=== PATIENT | female | born 1955 | race Caucasian/White ===

== ENCOUNTER → 2018-07-14 | Outpatient (CLI) | payer OTHER ==
[~2018-07-14] MED LIST: CIPR250 PO; FENO145 PO; FLUC150A PO; HYDCHL25 PO; LEVSOD150 PO; PHENA200 PO; POTCHL20ER PO; Zofran Odt4 MG SL; [UNRECOGNIZED DRUG - OTHER] PO
[2018-07-16 14:09] LABS: HPV 16 Negative (Negative); HPV 18 Negative (Negative); HPV OTHER HR TYPES Negative (Negative)
== END | disposition home or self-care (01) ==
LOC: LAB 14:18 → LAB SHORT 14:18
PROVIDERS: Nurse Practitioner Women's Health
DX: Z12.72 Encounter for screening for malignant neoplasm of vagina (principal); Z91.89 Other specified personal risk factors, not elsewhere classified
CPT/HCPCS: 87624; G0123

== ENCOUNTER 2023-03-18 20:19 | Emergency (ER) | payer MEDICARE, OTHER ==
[~2023-03-18] VITALS: Ht 162.6 cm; Wt 68.0 kg
[~2023-03-18 20:19] MED LIST changes: +ALBU90OI INH; +AMLO10 PO; +CLON.2 PO; +METO50 PO; +Prinivil10 MG PO; +VENL150ER PO
[2023-03-18 21:27] LABS: BASOPHILS ABSOLUTE AUTO 0.09 K/mm3 (0.00-0.23); BASOPHILS PERCENT AUTO 1 % (0-2); EOSINOPHILS ABSOLUTE AUTO 0.21 K/mm3 (0.00-0.68); EOSINOPHILS PERCENT AUTO 2 % (0-6); Hemoglobin 13.7 g/dL (11.5-16.0); IMMATURE GRAN ABSOLUTE AUTO 0.04 K/mm3 (0.00-0.10); IMMATURE GRAN PERCENT AUTO 0 % (0-1); LYMPHOCYTES ABSOLUTE AUTO 1.55 K/mm3 (0.84-5.20); LYMPHOCYTES PERCENT AUTO 13 % (21-46); MONOCYTES ABSOLUTE AUTO 0.65 K/mm3 (0.16-1.47); MONOCYTES PERCENT AUTO 6 % (4-13); Mean Corpuscular HGB 28.5 pg (26.0-34.0); Mean Corpuscular HGB Conc 32.6 g/dL (31.5-36.5); Mean Corpuscular Volume 88 fL (80-100); Mean Platelet Volume 9.3 fL (9.1-12.4); NEUTROPHILS ABSOLUTE AUTO 9.11 K/mm3 (1.96-9.15); NEUTROPHILS PERCENT AUTO 78 % (41-73); Platelet Count 372 K/mm3 (150-400); RDW Coefficient Variation 13.2 % (11.7-14.2); RDW Standard Deviation 42.5 fL (35.1-46.3); White Blood Cell Count 11.65 K/mm3 (4.00-11.30)
[2023-03-18 22:05] LABS: Albumin, Blood 2.9 g/dL (3.4-5.0); Albumin/Globulin Ratio 0.9 (0.8-1.8); Bilirubin, Total 0.2 mg/dL (0.1-1.0); Bun/Creatinine Ratio 22.3 (12.0-20.0); Calcium, Blood 7.3 mg/dL (8.5-10.1); Creatinine, Blood 0.54 mg/dL (0.40-1.00); Globulin, Blood 3.4 g/dL (2.2-4.0); Potassium, Blood 3.7 mmol/L (3.5-5.5); Total Protein, Blood 6.3 g/dL (6.4-8.2)
[2023-03-19 00:54] LABS: Magnesium, Blood 1.8 mg/dL (1.6-2.4)
[2023-03-19 02:28] LABS: Source, Urine Clean Catch
[2023-03-19 02:31] LABS: Bilirubin, Urine Neg (Neg); Blood, Urine Neg (Neg); Glucose Qualitative, Urine Neg (Neg); Ketones, Urine Neg (Neg); Leukocyte Esterase, Urine 2+ (Neg); Nitrite, Urine Neg (Neg); Protein, Urine Neg (Neg); Urobilinogen, Urine NORM (Normal)
[2023-03-19 02:50] LABS: Appearance, Urine Hazy (Clear); Color, Urine Yellow (P-Yellow)
[2023-03-19 02:54] LABS: Bacteria Few /hpf; Red Blood Cells, Urine 0-2 /hpf (0-2); Squamous Epithelial Cells Few /hpf (Few)
[2023-03-19 04:15] VITALS: BP 208/104
== END 2023-03-19 04:43 | disposition home or self-care (01) ==
LOC: ER 20:19
PROVIDERS: Emergency Medicine; Physician Assistant
DX: R53.1 Weakness (principal); I10 Essential (primary) hypertension; R94.31 Abnormal electrocardiogram [ECG] [EKG]; F17.200 Nicotine dependence, unspecified, uncomplicated; Z88.0 Allergy status to penicillin; Z88.5 Allergy status to narcotic agent; Z79.890 Hormone replacement therapy; Z79.899 Other long term (current) drug therapy
CPT/HCPCS: 36415; 71045; 80053; 81001; 83735; 84100; 85025; 87086; 93005; 93010; 93971; 99285-25; A9270

== ENCOUNTER 2023-07-11 15:40 | Inpatient (IN) | payer MEDICARE, OTHER ==
[~2023-07-11] VITALS: Ht 162.6 cm; Wt 74.3 kg
[2023-07-11 16:27] LABS: BASOPHILS ABSOLUTE AUTO 0.09 K/mm3 (0.00-0.23); BASOPHILS PERCENT AUTO 1 % (0-2); EOSINOPHILS PERCENT AUTO 1 % (0-6); Hematocrit 43.2 % (33.0-51.0); Hemoglobin 14.4 g/dL (11.5-16.0); IMMATURE GRAN ABSOLUTE AUTO 0.09 K/mm3 (0.00-0.10); IMMATURE GRAN PERCENT AUTO 1 % (0-1); LYMPHOCYTES ABSOLUTE AUTO 1.05 K/mm3 (0.84-5.20); LYMPHOCYTES PERCENT AUTO 10 % (21-46); MONOCYTES ABSOLUTE AUTO 0.49 K/mm3 (0.16-1.47); MONOCYTES PERCENT AUTO 5 % (4-13); Mean Corpuscular HGB 28.6 pg (26.0-34.0); Mean Corpuscular HGB Conc 33.3 g/dL (31.5-36.5); Mean Corpuscular Volume 86 fL (80-100); Mean Platelet Volume 9.8 fL (9.1-12.4); NEUTROPHILS ABSOLUTE AUTO 8.92 K/mm3 (1.96-9.15); NEUTROPHILS PERCENT AUTO 83 % (41-73); Platelet Count 424 K/mm3 (150-400); RDW Coefficient Variation 12.5 % (11.7-14.2); Red Blood Cell Count 5.03 M/mm3 (3.80-5.20); White Blood Cell Count 10.74 K/mm3 (4.00-11.30)
[2023-07-11 16:52] LABS: Albumin, Blood 3.5 g/dL (3.4-5.0); Albumin/Globulin Ratio 0.9 (0.8-1.8); Bilirubin, Total 0.3 mg/dL (0.1-1.0); Bun/Creatinine Ratio 17.6 (12.0-20.0); Calcium, Blood 8.6 mg/dL (8.5-10.1); Creatinine, Blood 0.62 mg/dL (0.40-1.00); Globulin, Blood 4.1 g/dL (2.2-4.0); Potassium, Blood 3.6 mmol/L (3.5-5.5); Total Protein, Blood 7.6 g/dL (6.4-8.2)
[2023-07-11 20:46] LABS: Influenza A, PCR NEGATIVE (NEGATIVE); Influenza B, PCR NEGATIVE (NEGATIVE); Resp Syncytial Virus, PCR NEGATIVE (NEGATIVE); SARS-Cov-2 (COVID-19) PCR, MMC NEGATIVE (NEGATIVE)
[2023-07-11 22:00] VITALS: BP 145/85
[2023-07-12] VITALS (20 sets, daily range): BP systolic 105–201; BP diastolic 59–98
[2023-07-12 05:51] LABS: Hematocrit 41.9 % (33.0-51.0); Hemoglobin 13.6 g/dL (11.5-16.0); Mean Corpuscular HGB 28.2 pg (26.0-34.0); Mean Corpuscular HGB Conc 32.5 g/dL (31.5-36.5); Mean Corpuscular Volume 87 fL (80-100); Mean Platelet Volume 9.9 fL (9.1-12.4); Platelet Count 437 K/mm3 (150-400); RDW Coefficient Variation 12.6 % (11.7-14.2); Red Blood Cell Count 4.82 M/mm3 (3.80-5.20); White Blood Cell Count 12.65 K/mm3 (4.00-11.30)
[2023-07-12 06:27] LABS: Bun/Creatinine Ratio 23.9 (12.0-20.0); Creatinine, Blood 0.79 mg/dL (0.40-1.00); Potassium, Blood 3.2 mmol/L (3.5-5.5)
--- NOTE | 2023-07-12 08:26 | NUR ---
SUMMARY ADMIT TO ORTHO SERVICES FOR CLOSED R FEMUR FX . MED WITH DILAUDID FOR PAIN TONIGHT. APPEARS TO HAVE SOME SPASMS. DR DAVEY AT BEDSIDE AND AWARE.
--- NOTE | 2023-07-12 11:35 | NUR ---
PT TO DAY SURGERY FROM ROOM 213 FOR R Total Hip Arthroplasty. PLAN OF CARE DISCUSSED, QUESTIONS ANSWERED. PT PUT ON O2 VIA NC AT 4/HR.
--- NOTE | 2023-07-12 11:37 | NUR ---
PT TO DAY SURGERY WITH 20G IV IN RIGHT AC
--- NOTE | 2023-07-12 11:43 | NUR ---
PATIENT IS BEING TAKEN TO THE OR.
--- NOTE | 2023-07-12 16:34 | NUR ---
SHIFT SUMMARY/NOTE: PATIENT JUST ARRIVED FROM PACU. POD 0 RIGHT TOTAL HIP PATIENT IS DROWSY BUT WITH VERBAL STIMULI PATIENT WAKES UP AND ANSWERS QUESTIONS APPROPRIATELY. PATIENT DENIES PAIN AT THIS TIME. HER RIGHT HIP HAS AN AQUACEL THAT IS C/D/I. SHE DENIES NUMBNESS OR TINGLING IN ALL EXTREMITIES. SHE IS ABLE TO WIGGLE ALL FINGERS AND TOES WHEN ASKED. POLAR PACK IS IN PLACE ON RIGHT HIP. PATIENT IS ABLE TO TOLERATE SMALL AMOUNTS OF PO INTAKE AT THIS TIME. SHE IS CURRENTLY LAYING IN BED WITH CALL LIGHT IN REACH. PATIENTS SISTER MEGHANN WAS CALLED AND UPDATED ON THE PATIENT PER PATIENT REQUEST.
--- NOTE | 2023-07-12 18:12 | NUR ---
PT SITTING UP IN BED PT NOT SURE IF SHE WANTS TO EAT HER DINNER I TOOK HER A CUP OF COFFEE
[2023-07-13 00:08] VITALS: BP 121/67
[2023-07-13 03:44] VITALS: BP 117/68
[2023-07-13 04:55] LABS: BASOPHILS ABSOLUTE AUTO 0.03 K/mm3 (0.00-0.23); BASOPHILS PERCENT AUTO 0 % (0-2); EOSINOPHILS ABSOLUTE AUTO 0.06 K/mm3 (0.00-0.68); EOSINOPHILS PERCENT AUTO 0 % (0-6); Hematocrit 33.7 % (33.0-51.0); Hemoglobin 10.8 g/dL (11.5-16.0); IMMATURE GRAN ABSOLUTE AUTO 0.08 K/mm3 (0.00-0.10); IMMATURE GRAN PERCENT AUTO 1 % (0-1); LYMPHOCYTES ABSOLUTE AUTO 1.12 K/mm3 (0.84-5.20); LYMPHOCYTES PERCENT AUTO 7 % (21-46); MONOCYTES ABSOLUTE AUTO 0.73 K/mm3 (0.16-1.47); MONOCYTES PERCENT AUTO 5 % (4-13); Mean Corpuscular HGB 28.5 pg (26.0-34.0); Mean Corpuscular Volume 89 fL (80-100); NEUTROPHILS PERCENT AUTO 87 % (41-73); Platelet Count 351 K/mm3 (150-400); RDW Coefficient Variation 12.8 % (11.7-14.2); RDW Standard Deviation 41.3 fL (35.1-46.3); Red Blood Cell Count 3.79 M/mm3 (3.80-5.20); White Blood Cell Count 15.62 K/mm3 (4.00-11.30)
[2023-07-13 05:11] LABS: Albumin, Blood 2.6 g/dL (3.4-5.0); Anion Gap 5 mmol/L (6-16); Blood Urea Nitrogen 26 mg/dL (8-24); Bun/Creatinine Ratio 23.9 (12.0-20.0); CO2, Blood 26 mmol/L (21-32); Calcium, Blood 8.1 mg/dL (8.5-10.1); Chloride, Blood 110 mmol/L (98-108); Creatinine, Blood 1.09 mg/dL (0.40-1.00); Glomerular Filtration Rate 56 (60-); Glucose, Blood 134 mg/dL (70-99); Phosphorus, Blood 3.4 mg/dL (2.5-4.9); Potassium, Blood 3.4 mmol/L (3.5-5.5); Sodium, Blood 141 mmol/L (136-145)
--- NOTE | 2023-07-13 06:18 | NUR ---
SHIFT SUMMARY PT IS POD#1 FOR A RIGHT TOTAL HIP ARTHROPLASTY. PT WAS ABLE TO GET OOB WITH STAFF THIS SHIFT A COUPLE OF TIMES THROUGHOUT THE NIGHT AND AMBULATED IN THE HALLS BOTH TIMES FOR A SHORT DISTANCE. PT HAS BEEN PAINFUL THROUGHOUT THE SHIFT AND HAS BEEN MEDICATED PER EMAR WITH PO MEDICATION. PT'S RIGHT SIDED SCD WAS REMOVED D/T PT COMPLAINING OF DISCOMFORT, BUT RACHEL HOSE REMAINED ON. PT HARDLY SLEPT THROUGHOUT THE NIGHT. VITAL SIGNS HAVE BEEN STABLE. BED IS IN LOWEST POSITION, CALL LIGHT IS WITHIN REACH.
[2023-07-13 07:22] VITALS: BP 114/57
[2023-07-13 14:59] VITALS: BP 92/58
[2023-07-13 15:00] VITALS: BP 108/56
--- NOTE | 2023-07-13 19:33 | NUR ---
SHIFT SUMMARY POD1 R CARSON AFTER GLF AT HOME, A/OX4, VSS, TOLERATING PO, AMBULATES WITH SBA USING FWW/GB THOUGH SHE DOES REPORT A SIGNIFICANT INCREASE IN PAIN WHEN SHE AMBULATES AND HER DISTANCE IN AMBULATION SEEMS TO BE LIMITED SHE GETS FATIGUED/SORE QUICKLY. NO ACUTE EVENTS THIS SHIFT, CALL LIGHT IN REACH.
[2023-07-13 19:34] VITALS: BP 131/72
[2023-07-14 05:42] LABS: Albumin, Blood 2.6 g/dL (3.4-5.0); Anion Gap 2 mmol/L (6-16); Blood Urea Nitrogen 16 mg/dL (8-24); Bun/Creatinine Ratio 25.4 (12.0-20.0); CO2, Blood 30 mmol/L (21-32); Calcium, Blood 8.2 mg/dL (8.5-10.1); Chloride, Blood 108 mmol/L (98-108); Creatinine, Blood 0.63 mg/dL (0.40-1.00); Glomerular Filtration Rate 98 (60-); Glucose, Blood 113 mg/dL (70-99); Phosphorus, Blood 2.8 mg/dL (2.5-4.9); Potassium, Blood 3.3 mmol/L (3.5-5.5); Sodium, Blood 140 mmol/L (136-145)
[2023-07-14 05:45] VITALS: BP 153/79
[2023-07-14 07:10] VITALS: BP 133/71
--- NOTE | 2023-07-14 07:21 | NUR ---
SHIFT SUMMARY NO ACUTE CHANGES THROUGH THE NIGHT, VSS, 2L O2 VIA NC WHILE SLEEPING, SBA W/FWW, AQUACEL DRSG C/D/I, PAIN MANAGED PER EMAR, PT DID RECIEVE IV MEDS X2 FOR BREAKTHROUGH PAIN, PT ENC TO AMBULATE/MOVE EXT, TOLERATING PO INTAKE, VOIDING WNL, REPORT GIVEN TO LILIAN PENN, CALL LIGHT IN REACH
[2023-07-14 14:59] VITALS: BP 127/69
--- NOTE | 2023-07-14 17:53 | NUR ---
SHIFT SUMMARY PT POD 2 R CARSON. AQUACEL DRESSING TO R HIP C/D/I. PT UP TO CHAIR T/O SHIFT. AMBULATES TO BATHROOM SBA W/FWW AND GAIT BELT. PAIN HAS BEEN MANAGED WELL T/O SHIFT WITH PO MEDICATION. VOIDING W/O DIFFICULTY. PLAN TO DC HOME TOMORROW WITH HOME HEALTH.
[2023-07-14 19:14] VITALS: BP 90/51
[2023-07-14 21:05] VITALS: BP 122/59
[2023-07-15 05:19] LABS: BASOPHILS ABSOLUTE AUTO 0.05 K/mm3 (0.00-0.23); BASOPHILS PERCENT AUTO 1 % (0-2); EOSINOPHILS ABSOLUTE AUTO 0.24 K/mm3 (0.00-0.68); EOSINOPHILS PERCENT AUTO 3 % (0-6); Hematocrit 28.1 % (33.0-51.0); Hemoglobin 9.2 g/dL (11.5-16.0); IMMATURE GRAN ABSOLUTE AUTO 0.05 K/mm3 (0.00-0.10); IMMATURE GRAN PERCENT AUTO 1 % (0-1); LYMPHOCYTES ABSOLUTE AUTO 1.23 K/mm3 (0.84-5.20); LYMPHOCYTES PERCENT AUTO 15 % (21-46); MONOCYTES PERCENT AUTO 7 % (4-13); Mean Corpuscular HGB 29.1 pg (26.0-34.0); Mean Corpuscular HGB Conc 32.7 g/dL (31.5-36.5); Mean Corpuscular Volume 89 fL (80-100); Mean Platelet Volume 10.2 fL (9.1-12.4); NEUTROPHILS PERCENT AUTO 74 % (41-73); Platelet Count 265 K/mm3 (150-400); RDW Coefficient Variation 12.6 % (11.7-14.2); RDW Standard Deviation 41.6 fL (35.1-46.3); Red Blood Cell Count 3.16 M/mm3 (3.80-5.20); White Blood Cell Count 8.17 K/mm3 (4.00-11.30)
[2023-07-15 05:37] VITALS: BP 150/66
[2023-07-15 05:57] LABS: Albumin, Blood 2.2 g/dL (3.4-5.0); Anion Gap 4 mmol/L (6-16); Blood Urea Nitrogen 14 mg/dL (8-24); Bun/Creatinine Ratio 19.9 (12.0-20.0); CO2, Blood 29 mmol/L (21-32); Calcium, Blood 8.1 mg/dL (8.5-10.1); Chloride, Blood 107 mmol/L (98-108); Creatinine, Blood 0.71 mg/dL (0.40-1.00); Glomerular Filtration Rate 94 (60-); Glucose, Blood 118 mg/dL (70-99); Phosphorus, Blood 3.6 mg/dL (2.5-4.9); Potassium, Blood 3.7 mmol/L (3.5-5.5); Sodium, Blood 140 mmol/L (136-145)
[2023-07-15 07:38] VITALS: BP 145/90
--- NOTE | 2023-07-15 07:47 | NUR ---
SHIFT SUMMARY POD #3 R.CARSON PT IS A&O X4, ON RA, VSS, TOLERATING PO INTAKE, VOIDING WNL, SBA W/FWW, AMBULATED IN [place] X2, DRSG C/D/I, PAIN MANAGED WITH TYLENOL & 10 MG OXYCODONE, PT IS SITTING UP IN BED THIS AM, CALL LIGHT IN REACH, REPORT GIVEN TO RN
--- NOTE | 2023-07-15 09:30 | NUR ---
PT WORKED WITH PHYSICAL THERAPY THIS. PAIN INCREASED TO 9/10 AND PT WAS CRYING AFTER THERAPY. PT GIVEN FENTANYL FOR PAIN. DR. FALL NOTIFIED AND ASKED TO ORDER TORADOL FOR ADDITIONAL PAIN MANAGEMENT.
[2023-07-15 14:54] VITALS: BP 107/58
[2023-07-15 18:55] VITALS: BP 133/72
--- NOTE | 2023-07-15 20:16 | NUR ---
SHIFT SUMMARY PT IS POD#3 FROM R CARSON. PT HAD INCREASED PAIN THIS AM AFTER THERAPY AND PT HAD FENTANYL WHICH HELPED TO MANAGE PAIN. PAIN HAS BEEN MANAGED WITH OXY, TYLENOL AND TORADOL THE REST OF THE DAY. PT IS A 1 ASSIST WHEN OOB. BEDSIDE REPORT GIVEN TO MICAELA PENN.
[2023-07-16 04:17] VITALS: BP 128/71
[2023-07-16 04:55] LABS: BASOPHILS ABSOLUTE AUTO 0.06 K/mm3 (0.00-0.23); BASOPHILS PERCENT AUTO 1 % (0-2); EOSINOPHILS ABSOLUTE AUTO 0.28 K/mm3 (0.00-0.68); EOSINOPHILS PERCENT AUTO 4 % (0-6); Hematocrit 32.2 % (33.0-51.0); Hemoglobin 10.3 g/dL (11.5-16.0); IMMATURE GRAN ABSOLUTE AUTO 0.04 K/mm3 (0.00-0.10); IMMATURE GRAN PERCENT AUTO 1 % (0-1); LYMPHOCYTES ABSOLUTE AUTO 1.32 K/mm3 (0.84-5.20); LYMPHOCYTES PERCENT AUTO 19 % (21-46); MONOCYTES ABSOLUTE AUTO 0.43 K/mm3 (0.16-1.47); MONOCYTES PERCENT AUTO 6 % (4-13); Mean Corpuscular Volume 91 fL (80-100); NEUTROPHILS ABSOLUTE AUTO 4.93 K/mm3 (1.96-9.15); NEUTROPHILS PERCENT AUTO 70 % (41-73); Platelet Count 309 K/mm3 (150-400); RDW Coefficient Variation 12.6 % (11.7-14.2); RDW Standard Deviation 41.6 fL (35.1-46.3); Red Blood Cell Count 3.55 M/mm3 (3.80-5.20); White Blood Cell Count 7.06 K/mm3 (4.00-11.30)
[2023-07-16 05:23] LABS: Albumin, Blood 2.3 g/dL (3.4-5.0); Albumin/Globulin Ratio 0.6 (0.8-1.8); Bilirubin, Total 0.3 mg/dL (0.1-1.0); Calcium, Blood 8.6 mg/dL (8.5-10.1); Creatinine, Blood 0.76 mg/dL (0.40-1.00); Globulin, Blood 3.7 g/dL (2.2-4.0); Potassium, Blood 4.3 mmol/L (3.5-5.5)
--- NOTE | 2023-07-16 07:29 | NUR ---
SHIFT SUMMARY NO ACUTE CHANGES NOTED, A&O X4, VSS, ON RA, INCENTIVE SPIROMETER USE STRONGLY ENC, VOIDING WNL, TOLERATING PO INTAKE, SBA W/FWW, SURG DRSG C/D/I, PAIN MANAGED W PO OXY & TORADOL, PT IS ANXIOUS ABOUT GOING HOME TODAY, REASSURANCE & SAFETY EDUCATION PROVIDED, PT IS AWAKE SITTING UP IN BED THIS AM, THIS RN ASSISTED WITH HAIR CARE, REPORT GIVEN TO GENE PENN, CALL [facility] IN REACH
[2023-07-16 07:32] VITALS: BP 162/70
[2023-07-16 09:45] VITALS: BP 184/78
[2023-07-16 11:00] VITALS: BP 140/74
[2023-07-16] MEDS ORDERED: OXYC5 PO (13:45)
[2023-07-16] MEDS ORDERED: TIZA4 PO (13:46)
[2023-07-16 14:45] VITALS: BP 162/79
--- NOTE | 2023-07-16 15:33 | NUR ---
DISCHARGE PT WAS PROVIDED WITH WRITTEN AND VERBAL DISCHARGE INSTRUCTIONS; SHE REPORTED UNDERSTANDING. CLEAN DRESSINGS PROVIDED. PRESCRIPTIONS FAXED TO [facility] PER PT REQUEST, CONFIRMATION OF FAX RECEIVED. HARD SCRIPT FOR PAIN MEDICATION GIVEN TO PT'S [id number] PER PT REQUEST. PT DISCHARGED AT 1500 WITH [facility]. PT'S WALKER AND SHOWER CHAIR DELIVERED AND SENT HOME WITH PT. VSS PRIOR TO DISCHARGE.
== END 2023-07-16 15:36 | disposition home health service (06) | DRG 521 ==
LOC: ER 15:40 → SURS 18:16
PROVIDERS: Family Medicine; Internal Medicine; Nurse Practitioner Acute Care; Orthopaedic Surgery; Student in an Organized Health Care Education/Training Program; ADMIT Student in an Organized Health Care Education/Training Program
PROC: 0SR9049 Replacement of Right Hip Joint with Ceramic on Polyethylene Synthetic Substitute, Cemented, Open Approach (ICD-10-PCS; principal; 2023-07-12 12:30)
DX: S72.011A Unspecified intracapsular fracture of right femur, initial encounter for closed fracture (principal); J96.01 Acute respiratory failure with hypoxia; W10.9XXA Fall (on) (from) unspecified stairs and steps, initial encounter; J44.9 Chronic obstructive pulmonary disease, unspecified; I10 Essential (primary) hypertension; E87.6 Hypokalemia; F41.9 Anxiety disorder, unspecified; F32.A Depression, unspecified; E78.5 Hyperlipidemia, unspecified; F17.210 Nicotine dependence, cigarettes, uncomplicated; E89.0 Postprocedural hypothyroidism; I16.0 Hypertensive urgency; M62.838 Other muscle spasm; Z85.850 Personal history of malignant neoplasm of thyroid; Z88.5 Allergy status to narcotic agent; Z88.0 Allergy status to penicillin; Z79.890 Hormone replacement therapy; Z11.52 Encounter for screening for COVID-19
CPT/HCPCS: 0241U; 36415; 71045; 71046; 72170; 73502; 80048; 80053; 80069; 84145; 85025; 85027; 93005; 93010; 94640; 94664; 94762; 96374; 96375; 96376; 97110; 97116; 97161; 99285-25; A9270; C1713; C1776; J0171; J0360; J0690; J0735; J1100; J1170; J1650; J1885; J2250; J2371; J2405; J2704; J2795; J3010; J3480; J7030; J7050; J7120

== ENCOUNTER → 2024-01-07 | Outpatient (CLI) | payer MEDICARE, OTHER ==
[~2024-01-07] MED LIST changes: +OXYC5 PO; +TIZA4 PO
[2024-01-07 16:30] LABS: Bacterial Vaginosis PCR Negative (NEGATIVE)
[2024-02-18 10:26] LABS: Candida Group, PCR NOT DETECTED (NOT DETECT); Candida glabrata-krusei, PCR DETECTED (NOT DETECT)
== END | disposition home or self-care (01) ==
LOC: LAB SHORT 10:50 → LAB 10:50
PROVIDERS: Nurse Practitioner
DX: N89.8 Other specified noninflammatory disorders of vagina (principal); R30.0 Dysuria
CPT/HCPCS: 87086; 87481; 87661; 87801

== ENCOUNTER → 2024-05-04 | Outpatient (CLI) | payer MEDICARE, OTHER | END | disposition home or self-care (01) | LOC: LAB 18:30 → LAB SHORT 18:30 | DX: R39.89 Other symptoms and signs involving the genitourinary system (principal) | CPT/HCPCS: 87077; 87086; 87186 ==

== ENCOUNTER → 2024-06-29 | Outpatient (CLI) | payer MEDICARE, OTHER | LOC: LAB 00:10 → LAB SHORT 00:10 | DX: J47.9 Bronchiectasis, uncomplicated (principal) | CPT/HCPCS: 87070; 87205 ==

== ENCOUNTER → 2024-07-15 | Outpatient (CLI) | payer MEDICARE, OTHER | END | disposition home or self-care (01) | LOC: LAB 10:00 → LAB SHORT 10:00 | DX: R39.89 Other symptoms and signs involving the genitourinary system (principal) | CPT/HCPCS: 87077; 87086; 87186 ==

== ENCOUNTER → 2024-10-16 | Outpatient (CLI) | payer MEDICARE, OTHER ==
[2024-10-16 20:42] LABS: Bacterial Vaginosis PCR Negative (NEGATIVE); Candida Group, PCR NOT DETECTED (NOT DETECT)
[2024-10-16 20:47] LABS: Candida glabrata-krusei, PCR DETECTED (NOT DETECT)
== END ==
LOC: LAB SHORT 11:25 → LAB 11:25
PROVIDERS: Physician Assistant
DX: R30.0 Dysuria (principal)
CPT/HCPCS: 81515; 87077; 87086; 87186

== ENCOUNTER → 2025-06-15 | Outpatient (CLI) | payer MEDICARE, OTHER | END | disposition home or self-care (01) | LOC: LAB 11:25 → LAB SHORT 11:25 | DX: R30.0 Dysuria (principal) | CPT/HCPCS: 87086 ==